=== PATIENT | male | born 1970 | race Caucasian/White ===

== ENCOUNTER 2020-08-21 15:44 | Emergency (ER) | payer BC ==
[2020-08-21] MEDS ORDERED: MORPHINE 4 MG/ML SYR ONE (16:38)
[2020-08-21 16:39] LABS: Urine Blood TRACE (NEG); Urine Glucose 2+ (NEG); Urine Protein 1+ (NEG); Urine Specific Gravity 1.025 (1.005-1.030)
[2020-08-21 16:39] LABS: Urine Bacteria <20 /HPF (NONE SEEN); Urine Mucus 1+ /HPF (NONE SEEN)
--- NOTE | 2020-08-21 16:46 | RAD REPORT ---
EXAM DESCRIPTION: CT - Stone Protocol - 08/21/2020 4:29 pm CLINICAL HISTORY: ABD PAIN COMPARISON: No comparisons TECHNIQUE: Axial 5 mm thick images were obtained without oral or IV contrast. The [id number] span s the entirety of the system including uppermost abdomen and lung bases. All CT scans are performed using dose optimization technique as appropriate and may include automated exposure control or mA/KV adjustment according to patient size. FINDINGS: No hydronephrosis is present and no obstructing ureteral calculi. No suspicious renal mass es. Isodense masses and pyelonephritis are not excluded on a stone protocol CT scan. No significant a drenal finding. Urinary bladder is mostly contracted which accentuates wall thickness. Prostate gland is enlarged. There is subtle congestion or edema in the fat adjacent to the prostate gland and bladd er base. No bladder calculi seen. No calcifications of the prostate gland. No seminal vesicle abnorma lity seen. Imaged portions of the liver, spleen and pancreas show no suspicious findings on non-contrast imaging . Gallbladder is contracted. No biliary tree dilatation. No suspicious bowel findings. Small hiatal hernia is present. Appendix is normal. No hernia, mass or bulky lymphadenopathy noted. No free air, free fluid or inflammatory stranding. No significant bony abnormality. IMPRESSION: Prostatitis and/or cystitis are suspected and need correlation with clinical findings an d lab findings. No hydronephrosis, obstructing calculus or acute renal/ ureteral finding. Isodense masses and pyelonephritis are not excluded on stone protocol technique.
[2020-08-21 16:57] LABS: Absolute Lymphocytes (CBC) 1.5 K/uL (0.7-4.9); Basophils % 0.9 % (0-1.3); Hematocrit 44.3 % (39.6-49.0); Lymphocytes % 15.9 % (15.3-44.8); MPV 7.7 fL (7.6-11.3); RBC Red Blood Cell Count 4.94 M/uL (4.33-5.43)
[2020-08-21 17:11] LABS: Albumin 3.9 g/dL (3.4-5.0); Bilirubin Direct 0.2 mg/dL (0-0.2); Bilirubin Total 0.5 mg/dL (0.2-1.0); Potassium 3.9 mmol/L (3.5-5.1); Protein, Total 8.2 g/dL (6.4-8.2)
--- NOTE | 2020-08-21 17:38 | RAD REPORT ---
EXAM DESCRIPTION: US - Scrotum Testicles - 08/21/2020 5:10 pm CLINICAL HISTORY: left testicle pain COMPARISON: No comparisons FINDINGS: Testicular tissue is homogeneous with no focal mass lesion. Doppler evaluation shows evette l blood flow within each testicle. No epididymis enlargement or hyperemia. Small left hydrocele is pr esent. Very minimal right hydrocele seen. No hernia or other extratesticular abnormality. IMPRESSION: Normal Doppler blood flow pattern. No suspicion for torsion. Small left-side and minimal right-side hydroceles.
[2020-08-21] MEDS ORDERED: KETOROLAC 30 MG/ML INJ ONE (17:48)
[2020-08-21] MEDS ORDERED: NA CHLORIDE 0.9% 1,000 ML ONE (17:48)
[2020-08-21] MEDS ORDERED: CEFTRIAXONE/SWI 1gm 1 GM/10 ML SYR ONE (17:48)
--- NOTE | 2020-08-21 18:00 | EDPHYS ---
Physician Documentation [facility] Name: Bradley White Age: 49 yrs Sex: Male : 1970 Arrival Date: 08/21/2020 Time: 15:47 Bed 23 Private MD: Rosa Sabillon K ED Physician Tony López HPI: 08/21 16:10 This 49 yrs old Male presents to ER via Ambulatory with complaints of cp Testicular Pain, Testicular Swelling. 16:10 The patient presents with tenderness, that is moderate, of the left testicle. Onset: cp The symptoms/episode began/occurred yesterday, and became worse today. Modifying factors: the symptoms are aggravated by movement. Associated signs and symptoms: Pertinent positives: abdominal pain, Pertinent negatives: constipation, diarrhea, dysuria, fever, vomiting. 16:10 Patient denies injury to area. cp Historical: - Allergies: 15:53 Codeine; iw - Home Meds: 15:53 None [Active]; iw - PMHx: 15:53 None; iw - PSHx: 15:53 None; iw - Immunization history:: Adult Immunizations not up to date. - Social history:: Smoking status: Patient denies any tobacco usage or history of. ROS: 16:15 Constitutional: Negative for body aches, chills, fever, poor PO intake. cp 16:15 Eyes: Negative for injury, pain, redness, and discharge. cp 16:15 ENT: Negative for ear pain, sore throat, difficulty swallowing, difficulty handling secretions. 16:15 Cardiovascular: Negative for chest pain, edema, palpitations. 16:15 Respiratory: Negative for cough, shortness of breath, wheezing. 16:15 Abdomen/GI: Positive for abdominal pain, of the suprapubic area. 16:15 Back: Negative for pain at rest, pain with movement, radiated pain. 16:15 : Positive for testicular pain Negative for urinary symptoms, flank pain, penile discharge. 16:15 Skin: Negative for cellulitis, rash. 16:15 Neuro: Negative for altered mental status, headache, weakness. 16:15 All other systems are negative. Exam: 16:25 Constitutional: The patient appears in no acute distress, alert, awake, cp non-diaphoretic, non-toxic, well developed, well nourished, obese, uncomfortable. 16:25 Head/Face: Normocephalic, atraumatic. cp 16:25 Eyes: Periorbital structures: appear normal, Conjunctiva: normal, no exudate, no injection, Sclera: no appreciated abnormality, Lids and lashes: appear normal, bilaterally. 16:25 ENT: External ear(s): are unremarkable, Nose: is normal, Mouth: Lips: moist, Oral mucosa: pink and intact, moist, Posterior pharynx: Airway: no evidence of obstruction, patent. 16:25 Chest/axilla: Inspection: normal, Palpation: is normal, no crepitus, no tenderness. 16:25 Cardiovascular: Rate: normal, Rhythm: regular, Edema: is not appreciated, JVD: is not appreciated. 16:25 Respiratory: the patient does not display signs of respiratory distress, Respirations: normal, no use of accessory muscles, no retractions, labored breathing, is not present, Breath sounds: are clear throughout, no decreased breath sounds. 16:25 Abdomen/GI: Inspection: abdomen appears normal, Bowel sounds: active, all quadrants, Palpation: soft, in all quadrants, mild abdominal tenderness, in the suprapubic area and left lower quadrant, rebound tenderness, is not appreciated, voluntary guarding, is not appreciated, involuntary guarding, is not appreciated, Hernia: not appreciated. 16:25 Back: pain, is absent, ROM is normal. 16:25 : Male external genitalia: swelling, is not appreciated, tenderness, of the left testicle is noted, that is moderate, Sexual behavior: the patient is sexually active, and reports a single partner. 16:25 Skin: cellulitis, is not appreciated, no rash present. Vital Signs: 15:51 BP 154 / 95; Pulse 108; Resp 16; Temp 98.3; Pulse Ox 100% on R/A; Weight 121.56 kg; iw Height 5 ft. 10 in. (177.80 cm); Pain 7/10; 17:00 BP 147 / 92; Pulse 87; Resp 16; Pulse Ox 99% on R/A; zb 18:00 BP 136 / 86; Pulse 82; Resp 18; Pulse Ox 97% on R/A; zb 18:55 BP 119 / 77; Pulse 80; Resp 16; Pulse Ox 99% on R/A; zb 15:51 Body Mass Index 38.45 (121.56 kg, 177.80 cm) iw MDM: 15:56 Patient medically screened. cp 16:30 Differential diagnosis: UTI, prostatitis, urethritis, epididymitis, STD, sepsis. cp 17:57 Data reviewed: vital signs, nurses notes, lab test result(s), radiologic studies, CT cp scan, ultrasound. 17:57 Counseling: I had a detailed discussion with the patient and/or guardian regarding: the cp historical points, exam findings, and any diagnostic results supporting the discharge/admit diagnosis, lab results, radiology results, the need for outpatient follow up, a urologist, to return to the emergency department if symptoms worsen or persist or if there are any questions or concerns that arise at home. Response to treatment: the patient's symptoms have markedly improved after treatment, VSS. Pain improved. Will discharge to home for continued monitoring. 08/21 16:09 Order name: Basic Metabolic Panel; Complete Time: 17:19 08/21 17:19 Interpretation: Normal except: GLUC 184; GFR 80. 08/21 16:09 Order name: CBC with Diff; Complete Time: 17:19 08/21 16:09 Order name: Hepatic Function; Complete Time: 17:19 08/21 16:09 Order name: Lipase; Complete Time: 17:19 08/21 16:09 Order name: Urine Microscopic Only; Complete Time: 17:19 08/21 17:20 Interpretation: Normal except: UWBC 10-20; URBC 5-10. 08/21 16:22 Order name: Urine Dipstick--Ancillary (enter results); Complete Time: 17:19 em1 08/21 17:20 Interpretation: Normal except: UBLD TRACE; UPROT 1+; UESTR TRACE. 08/21 16:09 Order name: US Scrotum Testicles; Complete Time: 17:40 08/21 17:40 Interpretation: Report reviewed. 08/21 16:10 Order name: CT Stone Protocol; Complete Time: 17:19 08/21 16:40 Order name: Urine Culture EDID 08/21 17:22 Order name: Psa Screen 08/21 16:09 Order name: IV Saline Lock; Complete Time: 16:25 08/21 16:09 Order name: Labs collected and sent; Complete Time: 16:25 08/21 16:09 Order name: Urine Dipstick-Ancillary (obtain specimen); Complete Time: 16:20 cp Administered Medications: 16:23 Drug: morphine 4 mg Route: IVP; Site: right forearm; zb 17:35 Follow up: Response: No adverse reaction; Pain is unchanged, physician notified; RASS: zb Alert and Calm (0) 17:40 Drug: TORadol - Ketorolac 15 mg Route: IVP; Site: right forearm; zb 18:16 Follow up: Response: No adverse reaction; No change in condition; Pain is unchanged, zb physician notified 17:43 Drug: NS 0.9% 1000 ml Route: IV; Rate: 1 bolus; Site: right forearm; zb 18:55 Follow up: Response: No adverse reaction; IV Status: Completed infusion; IV Intake: zb 1000ml 17:43 Drug: Rocephin 1 grams Route: IV; Rate: calculated rate; Site: right forearm; zb 18:16 Follow up: Response: No adverse reaction; IV Status: Completed infusion; IV Intake: 10mlzb 17:55 Drug: LevaQUIN 750 mg Route: PO; zb 18:16 Follow up: Response: No adverse reaction zb 17:55 Drug: Zithromax 1 grams Route: PO; zb 18:17 Follow up: Response: No adverse reaction zb Disposition: 08/22 06:50 Co-signature as Attending Physician, Tony López MD I agree with the assessment and kdr plan of care. Disposition: 08/21/20 17:59 Discharged to Home. Impression: Acute prostatitis, Cystitis. - Condition is Stable. - Discharge Instructions: Prostatitis, Urinary Tract Infection, Adult. - Prescriptions for Ibuprofen 800 mg Oral Tablet - take 1 tablet by ORAL route every 8 hours As needed take with food; 30 tablet. Levaquin 750 mg Oral Tablet - take 1 tablet by ORAL route once daily for 10 days; 10 tablet. Tramadol 50 mg Oral Tablet - take 1 tablet by ORAL route every 8 hours as needed; 12 tablet. - Medication Reconciliation Form, Thank You Letter, Antibiotic Education, Prescription Opioid Use form. - Work release form (08/21/20 18:57). zb - Follow up: Abdiel Alvarado MD; When: 1 week; Reason: Recheck today's complaints. - Problem is new. - Symptoms have improved. Signatures: Dispatcher [employer] EDMS Tony López MD MD kdr Williams, Irene, RN RN Naveed Duran PA PA cp Brown, Zipporah RN RN zb Corrections: (The following items were deleted from the chart) 08/21 18:03 17:59 08/21/2020 17:59 Discharged to Home. Impression: Acute prostatitis. Condition is cp Stable. Forms are Medication Reconciliation Form, Thank You Letter, Antibiotic Education, Prescription Opioid Use. Follow up: Abdiel Alvarado; When: 1 week; Reason: Recheck today's complaints. Problem is new. Symptoms have improved. cp 18:56 18:03 08/21/2020 17:59 Discharged to Home. Impression: Acute prostatitis; Cystitis. zb Condition is Stable. Discharge Instructions: Prostatitis, Urinary Tract Infection, Adult. Prescriptions for Ibuprofen 800 mg Oral Tablet - take 1 tablet by ORAL route every 8 hours As needed take with food; 30 tablet, Levaquin 750 mg Oral Tablet - take 1 tablet by ORAL route once daily for 10 days; 10 tablet, Tramadol 50 mg Oral Tablet - take 1 tablet by ORAL route every 8 hours as needed; 12 tablet. and Forms are Medication Reconciliation Form, Thank You Letter, Antibiotic Education, Prescription Opioid Use. Follow up: Abdiel Alvarado; When: 1 week; Reason: Recheck today's complaints. Problem is new. Symptoms have improved. cp
--- NOTE | 2020-08-21 18:00 | ER ---
Nurse's Notes [facility] Name: Bradley White Age: 49 yrs Sex: Male : 1970 Arrival Date: 08/21/2020 Time: 15:47 Bed 23 Private MD: Rosa Sabillon K Diagnosis: Acute prostatitis;Cystitis Presentation: 08/21 15:51 Chief complaint: Patient states: left testicular pain and swelling since yesterday, had iw LLQ pain 2 days ago, noticed his testicle didn't feel right, was ok this morning but as he was at work started hurting more. Coronavirus screen: At this time, the client does not indicate any symptoms associated with coronavirus-19. Ebola Screen: Patient negative for fever greater than or equal to 101.5 degrees Fahrenheit, and additional compatible Ebola Virus Disease symptoms Patient denies exposure to infectious person. Patient denies travel to an Ebola-affected area in the 21 days before illness onset. No symptoms or risks identified at this time. Initial Sepsis Screen: Does the patient meet any 2 criteria? No. Patient's initial sepsis screen is negative. Does the patient have a suspected source of infection? No. Patient's initial sepsis screen is negative. Risk Assessment: Do you want to hurt yourself or someone else? Patient reports no desire to harm self or others. Onset of symptoms was August 20, 2020. 15:51 Method Of Arrival: Ambulatory 15:51 Acuity: ALVAREZ 3 iw Historical: - Allergies: 15:53 Codeine; iw - Home Meds: 15:53 None [Active]; iw - PMHx: 15:53 None; iw - PSHx: 15:53 None; iw - Immunization history:: Adult Immunizations not up to date. - Social history:: Smoking status: Patient denies any tobacco usage or history of. Screenin:08 Abuse screen: Denies threats or abuse. Denies injuries from another. Nutritional zb screening: No deficits noted. Tuberculosis screening: No symptoms or risk factors identified. Fall Risk None identified. Assessment: 16:06 General: Appears in no apparent distress. uncomfortable, Behavior is calm, cooperative, zb appropriate for age. Pain: Complains of pain in left testicle Pain does not radiate. Pain at worst was 10 out of 10 on a pain scale. Quality of pain is described as aching, tender, Pain began 1 day ago. Aggravated by repositioning. Neuro: Level of Consciousness is awake, alert, obeys commands, Oriented to person, place, time, situation. Cardiovascular: Capillary refill < 3 seconds in bilateral Patient's skin is warm and dry. Respiratory: Airway is patent Respiratory effort is even, unlabored, Respiratory pattern is regular, symmetrical. GI: Abdomen is round non-distended. : Genitalia appear normal testis are swollen. EENT: No signs and/or symptoms were reported regarding the EENT system. Derm: Skin is intact, is healthy with good turgor, Skin is dry, Skin is normal. Musculoskeletal: Range of motion: intact in all extremities. 17:30 Reassessment: Patient appears in no apparent distress at this time. Patient and/or zb family updated on plan of care and expected duration. Pain level reassessed. Patient is alert, oriented x 3, equal unlabored respirations, skin warm/dry/pink. patient recently came back from CT and US. 18:14 Reassessment: D/C pending IV fluid completion. zb 18:54 Reassessment: IV fluid completed. D/c instructions given. gait steady and even. patient zb states already notified his ride. Vital Signs: 15:51 BP 154 / 95; Pulse 108; Resp 16; Temp 98.3; Pulse Ox 100% on R/A; Weight 121.56 kg; iw Height 5 ft. 10 in. (177.80 cm); Pain 7/10; 17:00 BP 147 / 92; Pulse 87; Resp 16; Pulse Ox 99% on R/A; zb 18:00 BP 136 / 86; Pulse 82; Resp 18; Pulse Ox 97% on R/A; zb 18:55 BP 119 / 77; Pulse 80; Resp 16; Pulse Ox 99% on R/A; zb 15:51 Body Mass Index 38.45 (121.56 kg, 177.80 cm) iw ED Course: 15:47 Patient arrived in ED. as 15:47 Rosa Sabillon MD is Private Physician. as 15:53 Triage completed. iw 15:55 Naveed Mccoy PA is [facility]. cp 15:55 Tony López MD is Attending Physician. cp 16:06 Brown, Yue, RN is Primary Nurse. zb 16:09 Arm band placed on. iw 16:24 Patient has correct armband on for positive identification. Placed in gown. Bed in low zb position. Call light in reach. Side rails up X 1. Pulse ox on. NIBP on. Door closed. Noise minimized. 16:24 Inserted saline lock: 20 gauge in right forearm, using aseptic technique. Blood zb collected. 16:28 CT Stone Protocol In Process Unspecified. EDMS 16:59 US Scrotum Testicles In Process Unspecified. EDMS 17:59 Abdiel Alvarado MD is Referral Physician. cp 18:53 IV discontinued, intact, bleeding controlled, No redness/swelling at site. Pressure zb dressing applied. 18:53 No provider procedures requiring assistance completed. zb Administered Medications: 16:23 Drug: morphine 4 mg Route: IVP; Site: right forearm; zb 17:35 Follow up: Response: No adverse reaction; Pain is unchanged, physician notified; RASS: zb Alert and Calm (0) 17:40 Drug: TORadol - Ketorolac 15 mg Route: IVP; Site: right forearm; zb 18:16 Follow up: Response: No adverse reaction; No change in condition; Pain is unchanged, zb physician notified 17:43 Drug: NS 0.9% 1000 ml Route: IV; Rate: 1 bolus; Site: right forearm; zb 18:55 Follow up: Response: No adverse reaction; IV Status: Completed infusion; IV Intake: zb 1000ml 17:43 Drug: Rocephin 1 grams Route: IV; Rate: calculated rate; Site: right forearm; zb 18:16 Follow up: Response: No adverse reaction; IV Status: Completed infusion; IV Intake: 10mlzb 17:55 Drug: LevaQUIN 750 mg Route: PO; zb 18:16 Follow up: Response: No adverse reaction zb 17:55 Drug: Zithromax 1 grams Route: PO; zb 18:17 Follow up: Response: No adverse reaction zb Intake: 18:16 IV: 10ml; Total: 10ml. zb 18:55 IV: 1000ml; Total: 1010ml. zb Outcome: 17:59 Discharge ordered by . cp 18:53 Discharged to home ambulatory. zb 18:53 Condition: stable 18:53 Discharge instructions given to patient, Instructed on discharge instructions, follow up and referral plans. medication usage, Demonstrated understanding of instructions, follow-up care, medications, Prescriptions given X 3. 18:56 Patient left the ED. zb Signatures: Dispatcher [employer] Carla Rodrigues Irene, RN RN Naveed Duran PA PA cp Brown, Zipporah, RN RN zalejandro Corrections: (The following items were deleted from the chart) 18:15 17:00 Reassessment: Patient appears in no apparent distress at this time. Patient zb and/or family updated on plan of care and expected duration. Pain level reassessed. Patient is alert, oriented x 3, equal unlabored respirations, skin warm/dry/pink. patient recently came back from CT and US zb
[2020-08-21] MEDS ORDERED: levoFLOXacin 750 MG TAB ONE (18:09)
[2020-08-21] MEDS ORDERED: AZITHROMYCIN 250 MG TAB ONE ×2 (18:09→18:10)
[2020-08-21] MEDS ORDERED: HYDROCODONE/APAP 7.5/325 MG TAB ONE (18:43)
[2020-08-21 19:01] VITALS: TEMP 98.3
[2020-08-21 19:05] VITALS: BP 119/77; O2SAT 99
== END 2020-08-21 18:56 | disposition home or self-care (01) ==
LOC: ER 15:44
DX: N41.0 Acute prostatitis (principal); N30.90 Cystitis, unspecified without hematuria; Z88.6 Allergy status to analgesic agent
CPT/HCPCS: 96365; 96361; 87088; 85025; 87086; 80048; 36415; 80076; 83690; 76377; 74176; 76870; 96375; 99284; G0103; J0696; J7030; 81003; 81015

== ENCOUNTER 2023-07-02 09:39 | Inpatient (IN) | payer BC ==
[2023-07-02] MEDS ORDERED: METOCLOPRAMIDE 10 MG/2mL INJ ONE (09:58)
[2023-07-02] MEDS ORDERED: MORPHINE 4 MG/ML SYR ONE (09:58)
[2023-07-02] MEDS ORDERED: FAMOTIDINE 20 MG/2 ML VIAL IV ONE (10:06)
[2023-07-02] MEDS ORDERED: NA CHLORIDE 0.9% 1,000 ML ONE ×2 (10:07→13:31)
[2023-07-02 10:13] LABS: Absolute Lymphocytes (CBC) 1.1 K/uL (0.7-4.9); Hematocrit 41.7 % (39.6-49.0); MCV 87.4 fL (80-100); MPV 7.2 fL (7.6-11.3); Platelets 252 thou/uL (152-406); RBC Red Blood Cell Count 4.78 M/uL (4.33-5.43)
--- NOTE | 2023-07-02 10:20 | RAD REPORT ---
EXAM DESCRIPTION: US - Abdomen Exam Limited - 07/02/2023 10:10 am CLINICAL HISTORY: Abdominal pain. COMPARISON: None. FINDINGS: Small to moderate amount of gallbladder sludge. A gallstone is not seen. Gallbladder wall upper limits normal thickness The biliary tree is normal caliber. IMPRESSION: Small to moderate amount of gallbladder sludge
[2023-07-02] MEDS ORDERED: HYDROMORPHONE HCL 1 MG/ML INJ ONE ×4 (10:23→22:55)
[2023-07-02 10:32] LABS: Bilirubin Direct 0.3 mg/dL (0-0.2); Bilirubin Indirect, Calculated 0.5 mg/dL (0.2-0.8); Bilirubin Total 0.8 mg/dL (0.2-1.0); Magnesium 2.1 mg/dL (1.6-2.4); Potassium 3.4 mEq/L (3.5-5.1); Protein, Total 7.4 g/dL (6.4-8.2); Troponin High Sensitivity 4.8 pg/mL (<58.9)
--- NOTE | 2023-07-02 11:30 | RAD REPORT ---
EXAM DESCRIPTION: Tiffanie Single View07/02/2023 10:47 am CLINICAL HISTORY: Abdominal pain COMPARISON: none FINDINGS: The lungs appear clear of acute infiltrate. The heart is normal size IMPRESSION: No acute abnormalities displayed
--- NOTE | 2023-07-02 11:30 | RAD REPORT ---
EXAM DESCRIPTION: CT - Angio Aorta For Dissection - 07/02/2023 11:14 am CLINICAL HISTORY: . Chest and abd pain COMPARISON: None TECHNIQUE: Computed tomography angiography of the chest, abdomen pelvis were obtained. 100 cc Isovue 370 was administered intravenously. Coronal and sagittal reconstruction were performed. MIP 3D reconstruction was performed All CT scans are performed using dose optimization technique as appropriate and may include automated exposure control or mA/KV adjustment according to patient size. FINDINGS: The opacification of the aorta is suboptimal. No gross aortic dissection seen An aortic aneurysm is not displayed. The celiac, SMA and KATHY are patent . A lung consolidation is not present. A pericardial effusion is not seen. A pleural effusion is not no tea. Mild gallbladder distention. Small amount of fluid abuts the gallbladder and second portion of the du odenum The liver,spleen, pancreas,adrenals and kidneys demonstrate no significant abnormality. There no evidence diverticulitis. Normal appendix Small inguinal hernias Spondylosis lumbar spine results in spinal stenosis IMPRESSION: Suboptimal opacification of the aorta. No gross aortic dissection noted Mild gallbladder distention. Small amount of fluid surrounds the gallbladder and second portion of th e duodenum indicative of inflammation. Gallbladder is considered the most likely source. Duodenum is also a consideration but probably less likely
--- NOTE | 2023-07-02 12:02 | ER ---
Nurse's Notes [facility] Name: Bradley White Age: 52 yrs Sex: Male : 1970 Arrival Date: 07/02/2023 Time: 09:39 Bed 19 Private MD: Diagnosis: Acute cholecystitis;Hypertensive heart disease without heart failure;Diabetes mellitus due to underlying condition with hyperglycemia Presentation: 07/02 09:44 Chief complaint: Patient states: STARTED HAVING CP 1 HR AGO AFTER VOMITING. DIARRHEA jj7 ALL DAY YESTERDAY. Coronavirus screen: At this time, the client does not indicate any symptoms associated with coronavirus-19. Ebola Screen: No symptoms or risks identified at this time. Initial Sepsis Screen: Does the patient meet any 2 criteria? No. Patient's initial sepsis screen is negative. Does the patient have a suspected source of infection? No. Patient's initial sepsis screen is negative. Risk Assessment: Do you want to hurt yourself or someone else? Patient reports no desire to harm self or others. Onset of symptoms was July 02, 2023. 09:44 Method Of Arrival: Wheelchair jj7 09:44 Acuity: ALVAREZ 3 jj7 Triage Assessment: 10:01 General: Appears in no apparent distress. uncomfortable, Behavior is cooperative, jj7 appropriate for age. Pain: Complains of pain in epigastric area Pain currently is 10 out of 10 on a pain scale. Cardiovascular: Capillary refill < 3 seconds Patient's skin is warm and dry. Historical: - Allergies: 10:01 Codeine; jj7 - PMHx: 10:01 Diabetes mellitus; Hypertensive disorder; jj7 - PSHx: 10:01 None; jj7 - Immunization history:: Adult Immunizations not up to date. - Social history:: Smoking status: Patient denies any tobacco usage or history of. Patient uses alcohol, occasionally. Patient/guardian denies using street drugs. Screenin:[facility] ED Fall Risk Assessment (Adult) History of falling in the last 3 months, cp4 including since admission No falls in past 3 months (0 pts) Confusion or Disorientation No (0 pts) Intoxicated or Sedated No (0 pts) Impaired Gait No (0 pts) Mobility Assist Device Used No (0 pt) Altered Elimination No (0 pt) Score/Fall Risk Level 0 - 2 = Low Risk Oriented to surroundings, Maintained a safe environment, Educated pt \T\ family on fall prevention, incl call for assistance when getting out of bed, Assessed \T\ reinforced patient's understanding of fall precautions, Hourly rounding (assess needs \T\ fall precautionary measures) done. Abuse screen: Denies threats or abuse. Nutritional screening: No deficits noted. Tuberculosis screening: No symptoms or risk factors identified. Assessment: 10:15 General: Appears distressed, Behavior is calm, cooperative, appropriate for age. Pain: cp4 Pain does not radiate. Pain currently is 10 out of 10 on a pain scale. Pain began suddenly. Vital Signs: 09:44 BP 137 / 91; Pulse 90; Resp 20; Pulse Ox 100% ; Weight 117.93 kg; Height 5 ft. 10 in. ; jj7 Pain 10/10; 11:02 BP 146 / 77; Pulse 77; Resp 18; Pulse Ox 100% ; cp4 12:00 BP 130 / 85; Pulse 74; Resp 18; Pulse Ox 100% ; cp4 13:00 BP 148 / 71; Pulse 75; Resp 18; Pulse Ox 100% ; cp4 09:44 Body Mass Index 37.31 (117.93 kg, 177.8 cm) jj7 09:44 Pain Scale: Adult jj7 ED Course: 09:40 Patient arrived in ED. ts1 09:45 Naveed Mccoy PA is PHCP. cp 09:45 Naveed Lamas MD is Attending Physician. cp 09:58 Gerardo Read, RN is Primary Nurse. rs5 10:01 Triage completed. jj7 10:01 Arm band placed on right wrist. Patient placed in an exam room, on a stretcher, on jj7 director acute. EKG completed in triage. Results shown to MD. 10:10 Primary Nurse role handed off by Gerardo Read, RN cp4 10:10 Radha Vincent is Primary Nurse. cp4 10:12 US Abdomen Limited: gallbladder In Process Unspecified. EDMS 10:15 Bed in low position. Call light in reach. Side rails up X2. Client placed on continuous cp4 cardiac and pulse oximetry monitoring. NIBP monitoring applied. 10:15 No provider procedures requiring assistance completed. Inserted saline lock: 20 gauge cp4 in left antecubital area, using aseptic technique. Blood collected. Patient maintains SpO2 saturation greater than 95% on room air. 10:49 XRAY Chest (1 view) In Process Unspecified. EDMS 11:15 CT Aorta for Dissection In Process Unspecified. EDMS 12:01 Elmer Reddy MD is Hospitalizing Provider. cp 12 08:50 Patient admitted, IV remains in place. rs5 Administered Medications: 07/02 09:57 CANCELLED (Physician Discretion): ondansetron 4 mg IVP once; over 2 minutes cp 10:27 CANCELLED (Physician Discretion): clonidine0.1 mg PO once cp 10:30 Drug: HYDROmorphone IVP 1 mg IVP once Route: IVP; Site: left antecubital; cp4 13:42 Follow up: Response: No adverse reaction cp4 10:31 Drug: Famotidine IVP 20 mg IVP once; dilute with 10 mL 0.9% NaCl; give over 2 minutes cp4 Route: IVP; Site: left antecubital; 13:41 Follow up: Response: No adverse reaction cp4 10:31 Drug: morphine IVP or IV 4 mg IVP once over 4 mins Route: IVP; Infused Over: 4 mins; cp4 Site: left antecubital; 10:31 Drug: NS 0.9% IV 1000 ml IV at 999 ml/hr Per protocol; 1000 mL bolus Route: IV; Rate: cp4 999 ml/hr; Site: left antecubital; 13:41 Follow up: IV Status: Completed infusion cp4 10:31 Drug: metoCLOPramide IVP 10 mg IVP once; over 1 to 2 minutes Route: IVP; Site: left cp4 antecubital; 13:42 Follow up: Response: No adverse reaction cp4 12:01 Drug: HYDROmorphone IVP 1 mg IVP once Route: IVP; Site: left antecubital; cp4 12:04 Drug: Potassium PO Effervescent Tablet 25 mEq PO once; dissolve in 4 ounces of water or cp4 juice Route: PO; 13:42 Follow up: Response: No adverse reaction cp4 12:59 Drug: NS 0.9% IV 1000 ml IV at 125 ml/hr continuous Route: IV; Rate: 125 ml/hr; Site: cp4 left antecubital; 13:42 Drug: Piperacillin-Tazobactam IVPB 3.375 grams IVPB once over 60 mins; (mix in NS 100 cp4 mL) Route: IVPB; Infused Over: 60 mins; Site: left antecubital; Medication: 10:15 VIS not applicable for this client. cp4 Outcome: 12:02 Decision to Hospitalize by Provider. cp 07/03 08:50 Admitted to Med/surg accompanied by tech, with chart, rs5 Condition: stable Discharge instructions given to patient, family, Instructed on the need for admit, Demonstrated understanding of instructions, 08:56 Patient left the ED. ko1 Signatures: Dispatcher [employer] EDMS Naveed Mccoy PA PA cp Oliver, Kathy RN RN ko1 Lionel Miller RN RN jj7 Gerardo Read RN RN rs5 Kesha Ahumada PAS PAS ts1 Radha Vincent cp4
--- NOTE | 2023-07-02 12:02 | EDPHYS ---
Physician Documentation [facility] Name: Bradley White Age: 52 yrs Sex: Male : 1970 Arrival Date: 07/02/2023 Time: 09:39 Bed 19 Private MD: ED Physician Naveed Lamas HPI: 07/02 09:57 This 52 yrs old Male presents to ER via Unassigned with complaints of Chest Pain, cp Shortness Of Breath. 09:57 The patient or guardian reports chest pain that is located primarily in the epigastric cp area, anterior chest wall. 09:57 Onset: suddenly, today. The pain radiates to Associated signs and symptoms: Pertinent cp positives: nausea, shortness of breath, vomiting, Pertinent negatives: lower extremity pain, lower extremity swelling, diarrhea. The chest pain is described as constant. Duration: The patient or guardian reports a single episode, that is still ongoing, and worsening. Historical: - Allergies: 10:01 Codeine; jj7 - PMHx: 10:01 Diabetes mellitus; Hypertensive disorder; jj7 - PSHx: 10:01 None; jj7 - Immunization history:: Adult Immunizations not up to date. - Social history:: Smoking status: Patient denies any tobacco usage or history of. Patient uses alcohol, occasionally. Patient/guardian denies using street drugs. ROS: 10:00 Constitutional: Negative for body aches, chills, fever, cp 10:00 Eyes: Negative for injury, pain, redness, and discharge, cp 10:00 ENT: Negative for drainage from ear(s), ear pain, sore throat, difficulty swallowing, difficulty handling secretions, 10:00 Cardiovascular: Positive for chest pain, Negative for edema, palpitations, 10:00 Respiratory: Positive for shortness of breath, Negative for cough, wheezing, 10:00 Abdomen/GI: Positive for abdominal pain, nausea, vomiting, diarrhea, of the epigastric area, right upper quadrant and left upper quadrant, Negative for constipation, hematemesis, 10:00 Back: Positive for radiated pain, 10:00 Neuro: Negative for altered mental status, 10:00 All other systems are negative, Exam: 10:02 ECG was reviewed by the Attending Physician. cp 10:05 Constitutional: The patient appears alert, awake, non-diaphoretic, non-toxic, well cp developed, well nourished, in obvious distress, mildly distressed, in obvious pain, uncomfortable, 10:05 Head/Face: Normocephalic, atraumatic. cp 10:05 Eyes: Periorbital structures: appear normal, Conjunctiva: normal, no exudate, no injection, Sclera: no appreciated abnormality, Lids and lashes: appear normal, bilaterally, 10:05 ENT: External ear(s): are unremarkable, Nose: is normal, Mouth: Lips: moist, Oral mucosa: pink and intact, moist, Posterior pharynx: is normal, airway is patent, no erythema, no exudate, 10:05 Neck: ROM/movement: is normal, is supple, without pain, no range of motions limitations, no nuchal rigidity, 10:05 Chest/axilla: Inspection: normal, Palpation: is normal, no crepitus, no tenderness, 10:05 Cardiovascular: Rate: normal, Rhythm: regular, Edema: is not appreciated, JVD: is not appreciated, 10:05 Respiratory: the patient does not display signs of respiratory distress, Respirations: normal, no use of accessory muscles, labored breathing, is not present, Breath sounds: are clear throughout, no decreased breath sounds, no stridor, no wheezing, 10:05 Abdomen/GI: Inspection: abdomen appears normal, Bowel sounds: active, all quadrants, Palpation: soft, in all quadrants, severe abdominal tenderness, in the epigastric area and right upper quadrant, voluntary guarding, is elicited in the epigastric area and right upper quadrant, 10:05 Back: CVA tenderness, is absent, 10:05 Neuro: Orientation: to person, place \T\ time. Mentation: is normal, Motor: moves all fours, strength is normal, Sensation: is normal, Vital Signs: 09:44 BP 137 / 91; Pulse 90; Resp 20; Pulse Ox 100% ; Weight 117.93 kg; Height 5 ft. 10 in. ; jj7 Pain 10; 11:02 BP 146 / 77; Pulse 77; Resp 18; Pulse Ox 100% ; cp4 12:00 BP 130 / 85; Pulse 74; Resp 18; Pulse Ox 100% ; cp4 13:00 BP 148 / 71; Pulse 75; Resp 18; Pulse Ox 100% ; cp4 09:44 Body Mass Index 37.31 (117.93 kg, 177.8 cm) 7 09:44 Pain Scale: Adult jj7 MDM: 09:58 Patient medically screened. cp 11:00 Differential diagnosis: abnormal EKG, acute myocardial infarction, acute pericarditis, cp chest wall pain, cholecystitis, Cholelithiasis pancreatitis, pericarditis, pleurisy, pneumonia, pneumothorax, pulmonary embolus. 11:59 Data reviewed: vital signs, nurses notes, lab test result(s), EKG, radiologic studies, cp CT scan, plain films, ultrasound. Management of patient was discussed with the following: Chimney Repairer: DR Roberts who requests patient be admitted to hospitalist and will perform cholecystectomy tomorrow morning. House Superviser Armani notified. Care significantly affected by the following chronic conditions: Diabetes, Hypertension. 12:10 Counseling: I had a detailed discussion with the patient and/or guardian regarding the cp historical points, exam findings, and any diagnostic results supporting the discharge/admit diagnosis, lab results, radiology results, the need for further work-up and treatment in the hospital. 12:10 Response to treatment: the patient's symptoms have markedly improved after treatment, cp and as a result, I will admit patient. 07/02 09:56 Order name: Basic Metabolic Panel; Complete Time: 10:42 07/02 10:42 Interpretation: Normal except: K 3.4; GLUC 230; GFR 86. 07/02 09:56 Order name: CBC with Diff; Complete Time: 10:42 07/02 10:42 Interpretation: Normal except: RDW 16.4; MPV 7.2; GUZMAN% 80.3; LYM% 10.0; NEUT A 8.5. 07/02 09:56 Order name: LFT's; Complete Time: 10:42 07/02 10:42 Interpretation: Normal except: BILID 0.3. 07/02 09:56 Order name: Magnesium; Complete Time: 10:42 cp 07/02 09:56 Order name: NT PRO-BNP; Complete Time: 10:42 cp 07/02 09:56 Order name: PT-INR; Complete Time: 10:42 07/02 09:56 Order name: Troponin HS; Complete Time: 10:42 07/02 10:43 Interpretation: Reviewed. 07/02 09:56 Order name: Lipase; Complete Time: 10:42 cp 07/02 10:43 Interpretation: Reviewed. cp 07/02 10:27 Order name: UDS cp 07/02 12:42 Order name: Lactate w/ 2H reflex if indic. cp 07/02 12:42 Order name: Blood Culture Adult (2) cp 07/02 13:14 Order name: Basic Metabolic Panel EDMS 07/02 13:14 Order name: Basic Metabolic Panel EDMS 07/02 13:14 Order name: Basic Metabolic Panel EDMS 07/02 13:14 Order name: Basic Metabolic Panel EDMS 07/02 13:14 Order name: Basic Metabolic Panel EDMS 07/02 13:14 Order name: Basic Metabolic Panel EDMS 07/02 13:14 Order name: Basic Metabolic Panel EDMS 07/02 13:14 Order name: Basic Metabolic Panel EDMS 07/02 13:14 Order name: CBC with Automated Diff EDMS 07/02 13:14 Order name: CBC with Automated Diff EDMS 07/02 13:14 Order name: CBC with Automated Diff EDMS 07/02 13:14 Order name: CBC with Automated Diff EDMS 07/02 13:14 Order name: CBC with Automated Diff EDMS 07/02 13:14 Order name: CBC with Automated Diff EDMS 07/02 13:14 Order name: CBC with Automated Diff EDMS 07/02 13:14 Order name: CBC with Automated Diff EDMS 07/02 13:14 Order name: Magnesium EDMS 07/02 13:14 Order name: Magnesium EDMS 07/02 13:14 Order name: Magnesium EDMS 07/02 13:14 Order name: Magnesium EDMS 07/02 13:14 Order name: Magnesium EDMS 07/02 13:14 Order name: Magnesium EDMS 07/02 13:14 Order name: Magnesium EDMS 07/02 13:14 Order name: Magnesium EDMS 07/02 13:14 Order name: Phosphorus EDMS 07/02 13:14 Order name: Phosphorus EDMS 07/02 13:14 Order name: Phosphorus EDMS 07/02 13:14 Order name: Phosphorus EDMS 07/02 13:14 Order name: Phosphorus EDMS 07/02 13:14 Order name: Phosphorus EDMS 07/02 13:14 Order name: Phosphorus EDMS 07/02 13:14 Order name: Phosphorus EDMS 07/02 13:14 Order name: Troponin High Sensitivity EDMS 07/02 13:14 Order name: Troponin High Sensitivity EDNJ 07/02 13:14 Order name: Troponin High Sensitivity EDNJ 07/02 17:52 Order name: Lactate Sepsis 2 HR Follow-up EDNJ 07/03 05:19 Order name: Manual Differential EDNJ 07/02 09:56 Order name: XRAY Chest (1 view); Complete Time: 11:36 cp 07/02 11:36 Interpretation: Report review. cp 07/02 09:56 Order name: US Abdomen Limited: gallbladder; Complete Time: 10:42 cp 07/02 10:45 Order name: CT Aorta for Dissection; Complete Time: 11:36 cp 07/02 09:56 Order name: EKG; Complete Time: 09:57 cp 07/02 13:14 Order name: CONS Physician Consult EDNJ 07/02 09:56 Order name: Cardiac monitoring; Complete Time: 09:56 cp 07/02 09:56 Order name: EKG - Nurse/Tech; Complete Time: 10:32 cp 07/02 09:56 Order name: IV Saline Lock; Complete Time: 10:32 cp 07/02 09:56 Order name: Labs collected and sent; Complete Time: 10:32 cp 07/02 09:56 Order name: O2 Per Protocol; Complete Time: 09:56 cp 07/02 09:56 Order name: O2 Sat Monitoring; Complete Time: 09:56 cp 07/02 09:56 Order name: NPO; Complete Time: 10:32 cp EC:02 Rate is 85 beats/min. Rhythm is regular. DE interval is normal. QRS interval is normal. cp QT interval is prolonged at 492 msec. Interpreted by me. Reviewed by me. Administered Medications: 09:57 CANCELLED (Physician Discretion): ondansetron 4 mg IVP once; over 2 minutes cp 10:27 CANCELLED (Physician Discretion): clonidine0.1 mg PO once cp 10:30 Drug: HYDROmorphone IVP 1 mg IVP once Route: IVP; Site: left antecubital; cp4 13:42 Follow up: Response: No adverse reaction cp4 10:31 Drug: Famotidine IVP 20 mg IVP once; dilute with 10 mL 0.9% NaCl; give over 2 minutes cp4 Route: IVP; Site: left antecubital; 13:41 Follow up: Response: No adverse reaction cp4 10:31 Drug: morphine IVP or IV 4 mg IVP once over 4 mins Route: IVP; Infused Over: 4 mins; cp4 Site: left antecubital; 10:31 Drug: NS 0.9% IV 1000 ml IV at 999 ml/hr Per protocol; 1000 mL bolus Route: IV; Rate: cp4 999 ml/hr; Site: left antecubital; 13:41 Follow up: IV Status: Completed infusion cp4 10:31 Drug: metoCLOPramide IVP 10 mg IVP once; over 1 to 2 minutes Route: IVP; Site: left cp4 antecubital; 13:42 Follow up: Response: No adverse reaction cp4 12:01 Drug: HYDROmorphone IVP 1 mg IVP once Route: IVP; Site: left antecubital; cp4 12:04 Drug: Potassium PO Effervescent Tablet 25 mEq PO once; dissolve in 4 ounces of water or cp4 juice Route: PO; 13:42 Follow up: Response: No adverse reaction cp4 12:59 Drug: NS 0.9% IV 1000 ml IV at 125 ml/hr continuous Route: IV; Rate: 125 ml/hr; Site: cp4 left antecubital; 13:42 Drug: Piperacillin-Tazobactam IVPB 3.375 grams IVPB once over 60 mins; (mix in NS 100 cp4 mL) Route: IVPB; Infused Over: 60 mins; Site: left antecubital; Disposition Summary: 07/02/23 12:02 Hospitalization Ordered Notes: Hospitalization Status: Inpatient Admission cp Provider: Elmer Reddy cp Condition: Stable cp Problem: new cp Symptoms: have improved cp Bed/Room Type: Standard cp Location: Telemetry/MedSurg (Inpatient)(07/03/23 07:22) sp Room Assignment: [facility](07/03/23 07:22) sp Diagnosis - Acute cholecystitis cp - Hypertensive heart disease without heart failure cp - Diabetes mellitus due to underlying condition with hyperglycemia cp Forms: - Medication Reconciliation Form cp - SBAR form cp - Leadership Thank You Letter cp Signatures: Dispatcher [employer] EDCristal Valdovinos Corey, PA PA cp Garcia, Cindy, RN RN Armani Michelle RN RN Lionel Jason RN RN jj7 Radha Vincent cp4 Corrections: (The following items were deleted from the chart) 09:57 09:56 Ondansetron IVP 4 mg IVP once; over 2 minutes ordered. cp cp 10:27 10:27 cloNIDine PO 0.1 mg PO once ordered. cp cp 14:07 12:02 Telemetry/MedSurg (Inpatient) cp sp 14:07 12:02 cp sp 18:00 14:07 [facility] ER HOLD sp ja1 18:00 14:07 ERHOLD- sp ja1 19:20 18:00 Telemetry/MedSurg (Inpatient) ja1 cg 19:20 18:00 203 ja1 cg 19:34 19:20 Telemetry/MedSurg (Inpatient) cg cg 19:34 19:20 cg cg 19:34 19:34 cg cg 07/03 07:22 07/02 19:34 [facility] ER HOLD cg sp 07/03 07:22 07/02 19:34 ERHOLD- cg sp 07/03 21:19 07/02 11:41 Constitutional: Positive for cp cp
[2023-07-02] MEDS ORDERED: POTASSIUM 25 MEQ EFFERV TAB ONE (12:05)
[2023-07-02 12:30] LABS: Barbiturates NEGATIVE (NEGATIVE); Benzodiazepines NEGATIVE (NEGATIVE); Cocaine NEGATIVE (NEGATIVE); METHAMPHETAM NEGATIVE (NEGATIVE); Methadone NEGATIVE (NEGATIVE); Opiates NEGATIVE (NEGATIVE); Phencyclidine NEGATIVE (NEGATIVE); THC Cannibis NEGATIVE (NEGATIVE)
--- NOTE | 2023-07-02 12:46 | P.HP ---
Certification for Inpatient Patient admitted to: Inpatient With expected LOS: <2 Midnights Patient will require the following post-hospital care: None Practitioner: I am a practitioner with admitting privileges, knowledge of patient current condition, hospital course, and medical plan of care. Services: Services provided to patient in accordance with Admission requirements found in Title 42 Section 412.3 of the Code of Federal Regulations Patient History Date of Service: 07/02/23 Reason for admission: Acute cholecystitis History of Present Illness: Bradley White is a 52 year old male with Pmhx borderline diabetes mellitus and hypertension who presents to the ED c/o epigastric pain. Family is at bedside and describes the patient has had diarrhea since yesterday and woke up throughout the night. This morning still with diarrhea and now with epigastric pain, further progressed to nausea and then vomiting this afternoon. After vomiting severe pain occurred to epigastric area, chest pain, and back pain as well. He states he has never had episodes like this in the past. No fever, chills, or shortness of breath associated. Initial vitals BP 137 / 91; Pulse 90; Resp 20; Pulse Ox 100%. Labratory evaluation WBC 10, H/H 14/41, Platelets 252, Lipase 27, Lactic pending, Na 137, Potassium 3.4, BUN/creatinine 17/1.03, GFR 86, serum glucose 230. CT Angio "Mild gallbladder distention. Small amount of fluid surrounds the gallbladder and second portion of the duodenum indicative of inflammation. Gallbladder is considered the most likely source. Duodenum is also a consideration but probably less likely." US abdomen "Small to moderate amount of gallbladder sludge. A gallstone is not seen. Gallbladder wall upper limits normal thickness. The biliary tree is normal caliber. Small to moderate amount of gallbladder sludge" Chest Xray "The lungs appear clear of acute infiltrate. The heart is normal size" Bradley will be admitted to hospitalist service for further treatment of acute cholecystitis, Dr. Roberts has been consulted and plans for surgery in the morning. Allergies codeine Adverse Reaction (Verified 07/02/23 13:32) Review of Systems General: Weakness, Malaise Eyes: Unremarkable ENT: Unremarkable Respiratory: Unremarkable Cardiovascular: Chest Pain Gastrointestinal: Nausea, Vomiting, Abdominal Pain (epigastric pain), Diarrhea Genitourinary: Unremarkable Musculoskeletal: Back Pain Integumentary: Unremarkable Neurological: Unremarkable Lymphatics: Unremarkable Physical Examination - Physical Exam General: Alert, Oriented x3, Moderate distress HEENT: Atraumatic, Normocephalic, PERRLA Neck: Supple, 2+ carotid pulse no bruit, JVD not distended Respiratory: Clear to auscultation bilaterally, Normal air movement Cardiovascular: No edema, Normal pulses, Regular rate/rhythm, Normal S1 S2 Capillary refill: <2 Seconds Gastrointestinal: Normal bowel sounds, Soft and benign, Tenderness (epigastric tenderness) Musculoskeletal: No clubbing, No swelling, No contractures, No erythema Integumentary: No rashes, No breakdown, No significant lesion Neurological: Normal speech, Normal strength at 5/5 x4 extr, Normal tone - Studies Laboratory Data (last 24 hrs) 07/02/23 07/02/23 07/02/23 10:00 10:00 10:00 WBC 10.60 Hgb 14.7 Hct 41.7 Plt Count 252 PT 11.0 INR 1.00 Sodium 137 Potassium 3.4 L BUN 17 Creatinine 1.03 Glucose 230 H Magnesium 2.1 Total Bilirubin 0.8 AST 26 ALT 40 Alkaline Phosphatase 57 Lipase 27 Assessment and Plan - Plan Assessment and Plan Acute Cholecystitis -CT Angio "Mild gallbladder distention. Small amount of fluid surrounds the gallbladder and second portion of the duodenum indicative of inflammation. Gallbladder is considered the most likely source. Duodenum is also a consider ation but probably less likely." -US abdomen "Small to moderate amount of gallbladder sludge. A gallstone is not seen. Gallbladder wall upper limits normal thickness. The biliary tree is normal caliber. Small to moderate amount of gallbladder sludge" -WBC 10, Lipase 27, Lactic pending -Consulted Dr. Roberts, plan for surgery 07/03 in the morning -Zosyn daily -IVF -pain control -Clear liquid today, NPO at midnight Prolonged QT QT/QTc 414/492 Hold medications that prolong QT Hypokalemia K 3.4 Replaced in ED monitor in AM labs Diabetes Mellitus Accucheck with SSI HTN restart home medications DVT ppx SCD for now Full code LOS 2-3 days Discharge Plan: Home Plan to discharge in: 48 Hours - Advance Directives Does patient have a Living Will: No Does patient have a Durable POA for Healthcare: No Time Spent Managing Pts Care (In Minutes): 55
[2023-07-02] MEDS ORDERED: PROMETHAZINE INJ 25 MG/ML AMP ONE (12:47)
[2023-07-02] MEDS ORDERED: NA CHLORIDE 0.9% 100 ML ONE ×2 (12:48→13:30)
[2023-07-02] MEDS ORDERED: PIPERACIL/TAZO 3.375 GM VIAL IV ONE (13:31)
[2023-07-02] MEDS: NA CHLORIDE 0.9% 1,000 ML IV SCH (14:00)
[2023-07-02] MEDS: HYDROMORPHONE HCL 1 MG/ML INJ IV PRN ×2 (17:11→23:30)
[2023-07-02 17:24] VITALS: BMI 37.1
[2023-07-03 02:20] LABS: Absolute Lymphocytes (CBC) 0.6 K/uL (0.7-4.9); Hematocrit 42.5 % (39.6-49.0); Lymphocytes % 4.2 % (15.3-44.8); MCV 88.3 fL (80-100); MPV 7.1 fL (7.6-11.3); Platelets 215 thou/uL (152-406); RBC Red Blood Cell Count 4.82 M/uL (4.33-5.43)
[2023-07-03 03:01] LABS: Phosphorus 3.3 mg/dL (2.5-4.9); Potassium 3.5 mEq/L (3.5-5.1)
[2023-07-03] MEDS ORDERED: HYDROMORPHONE HCL 1 MG/ML INJ ONE ×3 (04:49→12:48)
[2023-07-03] MEDS: HYDROMORPHONE HCL 1 MG/ML INJ IV PRN ×4 (04:58→20:57)
[2023-07-03 05:19] LABS: Blood Morphology Comment NOT SEEN (NOT SEEN); Platelet Estimate ADEQ
[2023-07-03] MEDS ORDERED: NA CHLORIDE 0.9% 1,000 ML ONE ×2 (06:57→11:08)
[2023-07-03] MEDS ORDERED: KCL 20 MEQ/100 mL IVPB 100 ML IV ONE (06:58)
[2023-07-03] MEDS ORDERED: KCL 20 MEQ/100 mL IVPB 20 MEQ/100 ML BAG IV SCH (07:00)
[2023-07-03] MEDS ORDERED: BUPIVACAINE 0.5% PF 10 ML VIAL ONE (07:44)
[2023-07-03] MEDS ORDERED: SUCCINYLCHOLINE 20 MG/ML (10 ML) IV ONE (08:19)
[2023-07-03] MEDS: PIPER TAZO 3.375 GM in NA CHLORIDE 0.9% 100 ML IV SCH ×2 (09:00→15:33)
[2023-07-03 09:04] LABS: Albumin 3.5 g/dL (3.4-5.0); Bilirubin Direct 0.7 mg/dL (0-0.2); Bilirubin Total 1.7 mg/dL (0.2-1.0); Protein, Total 7.2 g/dL (6.4-8.2)
[2023-07-03] MEDS ORDERED: INFLUENZA VACCINE (for 6+ mo) 0.5 ML DOSE IMVAC ONE (09:30)
[2023-07-03] MEDS ORDERED: GLYCOPYRROLATE 0.2 MG/ML SYR ONE (09:42)
[2023-07-03] MEDS ORDERED: propofoL 200 MG/20 ML VIAL IV ONE (09:42)
[2023-07-03] MEDS ORDERED: MIDAZOLAM HCL 2 MG/2 ML INJ ONE (09:42)
[2023-07-03] MEDS ORDERED: NEOSTIGMINE 1 MG/ML -10 ML VIAL ONE (09:42)
[2023-07-03] MEDS ORDERED: FENTANYL CITR 250 MCG/5 ML ONE (09:42)
[2023-07-03] MEDS ORDERED: ROCURONIUM 50 MG/5 ML VIAL IV ONE (09:42)
[2023-07-03] MEDS ORDERED: LIDOCAINE 2% MPF 5 ML VIAL ONE (09:42)
[2023-07-03] MEDS ORDERED: ONDANSETRON 4 MG/2 ML VIAL ONE (09:42)
[2023-07-03] MEDS: NA CHLORIDE 0.9% 1,000 ML IV SCH ×4 (10:00→20:05)
--- NOTE | 2023-07-03 10:06 | P.CNS ---
Date of Consult: 07/03/23 Reason for consult: Abdominal pain History of present illness: 52-year-old gentleman comes in to the emergency room with 2-day history of diarrhea and epigastric abdominal pain radiating to the right upper quadrant. Pain is associated with minimal nausea but bloating, belching and heartburn. Patient denies any vomiting. Patient never had pain like this before. Pain did start after heavy meal. Patient denies any sore throat, runny nose, cough, headaches, dizziness and chest pain. Patient did have subjective fever at home. Patient denies diarrhea, constipation or blood per rectum. Patient denies dysuria or hematuria. Review of systems: Otherwise negative Past medical history: Hypertension, type 2 diabetes Past surgical history: Negative Allergies: Codeinecauses nausea Social history: Patient denies smoking tobacco, uses alcohol occasionally Family history: Noncontributory Vital signs: Stable, afebrile Physical exam: Awake, alert and oriented x 3 Head and neck exam: No evidence of icterus, no JVD, throat clear, neck supple and no neck masses Chest: Clear Heart: S1-S2 Abdomen: Soft, nondistended, hypoactive bowel sounds, right upper quadrant tenderness with rebound and positive Glasgow's sign Extremity: Neurovascular intact, nontender Neuro: Nonfocal Diagnostic data: White count was normal on admission however is 15.4 today with a left shift. LFTs were normal yesterday but today the AST and ALT are elevated, but the alk phos is normal and total bili is slightly elevated as well as the direct bili. Ultrasound shows sludge with normal common bile duct and borderline wall thickening. CAT scan of the abdomen shows sludge with some fluid around the gallbladder and duodenum consistent with acute cholecystitis. CAT scan for aortic dissection was negative Assessment: Acute cholecystitis with a patient with sludge. I believe the elevation of AST and ALT are secondary to acute cholecystitis rather than an obstruction of the common bile duct. Patient does not have any evidence of gallstone on studies done yesterday. Plan/recommendation: Admit, n.p.o., IV fluids, IV antibiotics and to the OR for laparoscopic cholecystectomy, possible open. Patient understands risk, benefits and alternatives and agrees to procedure. CC:
[2023-07-03] MEDS ORDERED: EPHEDRINE SULF 50 MG/ML VIAL ONE (10:55)
--- NOTE | 2023-07-03 11:32 | P.PN ---
Date of Service: 07/03/23 Subjective: Bradley is awake, alert, and oriented x 3. He is able to lay on his back since the pain has been relieved. Plan to the OR with Dr. Roberts, hemodynamically stable, on RA with oxygen saturation 96%. Will re-evalulate him after surgery. ROS: 10 point ROS as noted above, otherwise negative Physical Exam General: Alert, Oriented x3, Moderate distress HEENT: Atraumatic, Normocephalic, PERRLA Neck: Supple, 2+ carotid pulse no bruit, JVD not distended Respiratory: Clear to auscultation bilaterally, Normal air movement Cardiovascular: No edema, Normal pulses, Regular rate/rhythm, Normal S1 S2 Capillary refill: <2 Seconds Gastrointestinal: Normal bowel sounds, Soft and benign, Tenderness (epigastric tenderness) Musculoskeletal: No clubbing, No swelling, No contractures, No erythema Integumentary: No rashes, No breakdown, No significant lesion Neurological: Normal speech, Normal strength at 5/5 x4 extr, Normal tone Vitals reviewed Diagnosis Acute Cholecystitis Prolonged QT Hypokalemia Diabetes Mellitus-NIDDM Assessment and plan Acute Cholecystitis -CT Angio "Mild gallbladder distention. Small amount of fluid surrounds the gallbladder and second portion of the duodenum indicative of inflammation. Gallbladder is considered the most likely source. Duodenum is also a consideration but probably less likely." -US abdomen "Small to moderate amount of gallbladder sludge. A gallstone is not seen. Gallbladder wall upper limits normal thickness. The biliary tree is normal caliber. Small to moderate amount of gallbladder sludge" -WBC 10, Lipase 27, Lactic pending -Consulted Dr. Roberts, plan for surgery 07/03 in the morning -Zosyn daily -IVF -pain control -NPO prior to surgery, will advance when surgery requests Prolonged QT QT/QTc 414/492 Hold medications that prolong QT Hypokalemia K 3.4 Replaced in ED monitor in AM labs Diabetes Mellitus Accucheck with SSI HTN restart home medications DVT ppx SCD for now Full code LOS 2-3 days Discharge Plan: Home Plan to discharge in: 48 Hours Time Spent Managing Pts Care (In Minutes): 35
[2023-07-03] MEDS ORDERED: dexAMETHasone 10 MG/ML VIAL ONE (11:51)
[2023-07-03] MEDS ORDERED: ONDANSETRON 4 MG/2 ML VIAL IV PRN (12:02)
--- NOTE | 2023-07-03 12:07 | P.OP ---
Date of Service: 07/03/23 Preop diagnosis: Acute cholecystitis with sludge Postop diagnosis: Same Procedure performed: Laparoscopic cholecystectomy Surgeon: Omar Roberts MD Corn Cooker: Elda Tyler Estimated blood loss: Minimal Specimen: Gallbladder Findings: As above Anesthesia: General Complications: None Drains: None Fluids and blood products: Nonapplicable Disposition: Recovery room Operative note: Patient brought to the OR and placed in the supine position. General anesthesia begun. Patient prepped and draped in the usual sterile fashion. Marcaine 0.5% infiltrated locally. 15 blade used to make a 1 cm incision above the umbilicus. Subcutaneous tissue divided and fascia identified and divided. Bleeding controlled with cautery. #1 Vicryl stay suture placed into the fascia. Peritoneal cavity entered with sharp and blunt dissection. 12 mm trocar placed into the peritoneal cavity under direct vision. Pneumoperitoneum established. Three 5 mm trocars placed under direct vision. 1 trocar placed in the epigastric region just to the right of midline. 2 trocars placed in the right subcostal region. Laparoscopy revealed a distended thick- walled gallbladder with pericholecystic fluid. The gallbladder was aspirated of bile. Fundus of the gallbladder was retracted superiorly. Infundibulum was identified and retracted inferolaterally. Cystic duct and cystic artery were identified with blunt dissection. Clips placed and both structures divided. Cautery used to remove the gallbladder from the liver bed. Bleeding on the liver controlled cautery. Gallbladder retrieved through the umbilicus via Endo Catch bag. Please note that the fascial defect had to be extended to get the gallbladder out. Pneumoperitoneum was reestablished. Right upper quadrant was irrigated. There was no evidence of bleeding or bile leakage appreciated. All trocars removed under direct vision. #1 Vicryl used to close the fascial defect at the umbilicus. Wounds irrigated and bleeding controlled cautery. 3-0 chromic used to approximate subcutaneous tissue. [place] used to close skin. Sterile dressing applied. Patient awakened and taken to recovery room in good general condition. CC:
[2023-07-03 13:49] VITALS: O2SAT 95
[2023-07-03] MEDS: HYDROCODONE/APAP 7.5/325 MG TAB PO PRN (13:59)
[2023-07-03] MEDS ORDERED: PIPER TAZO 3.375 GM in NA CHLORIDE 0.9% 100 ML IV SCH (22:00)
[2023-07-04] MEDS: PIPER TAZO 3.375 GM in NA CHLORIDE 0.9% 100 ML IV SCH ×2 (01:08→08:00)
[2023-07-04] MEDS: HYDROMORPHONE HCL 1 MG/ML INJ IV PRN ×2 (01:08→06:58)
[2023-07-04] MEDS: HYDROCODONE/APAP 7.5/325 MG TAB PO PRN (03:27)
[2023-07-04] MEDS: NA CHLORIDE 0.9% 1,000 ML IV SCH (03:27)
[2023-07-04 07:00] LABS: Absolute Lymphocytes (CBC) 0.4 K/uL (0.7-4.9); Hematocrit 37.2 % (39.6-49.0); Lymphocytes % 3.7 % (15.3-44.8); MCV 88.3 fL (80-100); MPV 7.5 fL (7.6-11.3); Platelets 232 thou/uL (152-406); RBC Red Blood Cell Count 4.22 M/uL (4.33-5.43)
[2023-07-04 07:25] LABS: Albumin 2.9 g/dL (3.4-5.0); Bilirubin Direct 0.4 mg/dL (0-0.2); Bilirubin Indirect, Calculated 0.5 mg/dL (0.2-0.8); Bilirubin Total 0.9 mg/dL (0.2-1.0); Magnesium 2.3 mg/dL (1.6-2.4); Phosphorus 2.7 mg/dL (2.5-4.9); Potassium 3.8 mEq/L (3.5-5.1); Protein, Total 6.8 g/dL (6.4-8.2)
--- NOTE | 2023-07-04 08:03 | P.DS ---
Admission Date: 07/02/23 Discharge Date: 07/04/23 Disposition: ROUTINE DISCHARGE Discharge Condition: GOOD Reason for Admission: Acute cholecystitis Brief History of Present Illness: Diagnosis Acute Cholecystitis Prolonged QT Hypokalemia Diabetes Mellitus-NIDDM Hospital Course: Bradley White is a pleasant 52-year-old male with a past medical history significant for diabetes mellitus and hypertension who was admitted to the [facility] on 07/02/2023 for acute cholecystitis. Bradley presented to the ED with complaints of epigastric pain. He did have several episodes of diarrhea and woke up through the night further progressed to nausea and vomiting which led to severe pain. Ultrasound abdomen shows small to moderate amount of gallbladder sludge, CT angio of chest shows mild gallbladder distention. Zosyn was started while in the ED, Dr. Roberts was consulted with plans to go to surgery. He has tolerated surgical procedure well and is recovering well. He is ambulating independently on room air and tolerating a p.o. diet. He is hemodynamically stable and ready for discharge. On 07/04/2023, Bradley was seen on morning rounds and deemed medically stable for discharge. Bradley was discharged with instructions to schedule follow-up appointments with PCP and Dr. Roberts. Bradley was provided prescriptions for tramadol and ciprofloxacin. The patient and family members were given the opportunity to ask questions and reported no further questions. Furthermore, all questions were answered to the best of my ability. A copy of this discharge summary will be sent to the above providers to facilitate continuity of care. Today, I personally spent 55 minutes with Bradley, of which greater than 50% of the time was spent in patient education, counseling, and coordination of care as described above. Vital Signs/Physical Exam: Temp Pulse Resp BP Pulse Ox 98.1 F 75 16 113/58 L 93 07/04/23 07:59 07/04/23 07:59 07/04/23 07:59 07/04/23 07:59 07/04/23 07:59 Laboratory Data at Discharge: WBC 12.00 thou/uL (4.3-10.9) H 07/04/23 05:57 Hgb 12.8 g/dL (13.6-17.9) L D 07/04/23 05:57 Hct 37.2 % (39.6-49.0) L 07/04/23 05:57 Plt Count 232 thou/uL (152-406) 07/04/23 05:57 PT 11.0 SECONDS (9.5-12.5) 07/02/23 10:00 INR 1.00 07/02/23 10:00 Sodium 135 mEq/L (136-145) L 07/04/23 05:57 Potassium 3.8 mEq/L (3.5-5.1) 07/04/23 05:57 BUN 11 mg/dL (7-18) 07/04/23 05:57 Creatinine 0.80 mg/dL (0.70-1.30) 07/04/23 05:57 Glucose 145 mg/dL (74-106) H 07/04/23 05:57 Phosphorus 2.7 mg/dL (2.5-4.9) 07/04/23 05:57 Magnesium 2.3 mg/dL (1.6-2.4) 07/04/23 05:57 Total Bilirubin 0.9 mg/dL (0.2-1.0) 07/04/23 05:57 AST 137 U/L (15-37) H 07/04/23 05:57 ALT 237 U/L (16-61) H 07/04/23 05:57 Alkaline Phosphatase 72 U/L (45-117) 07/04/23 05:57 Lipase 27 U/L (13-75) 07/02/23 10:00 Home Medications: Doxepin HCl [Sinequan*] 10 mg PO DAILY 07/03/23 Losartan Potassium 100 mg PO DAILY 07/03/23 Omeprazole 20 mg PO DAILY 07/03/23 Tamsulosin [Flomax*] 0.4 mg PO BEDTIME 07/03/23 Ciprofloxacin HCl [Cipro 500 MG Tablet] 500 mg PO BID 7 Days #14 tab 07/04/23 traMADol HCL [Ultram] 50 mg PO Q6H PRN 3 Days #15 tab 07/04/23 New Medications: Ciprofloxacin HCl [Cipro 500 MG Tablet] 500 mg PO BID 7 Days #14 tab traMADol HCL [Ultram] 50 mg PO Q6H PRN 3 Days #15 tab PRN Reason: Pain Scale 5-7 (Moderate) Physician Discharge Instructions: Physical Exam General: Alert, Oriented x3, Moderate distress HEENT: Atraumatic, Normocephalic, PERRLA Neck: Supple, 2+ carotid pulse no bruit, JVD not distended Respiratory: Clear to auscultation bilaterally, Normal air movement Cardiovascular: No edema, Normal pulses, Regular rate/rhythm, Normal S1 S2 Capillary refill: <2 Seconds Gastrointestinal: Normal bowel sounds, Soft and benign, Tenderness (epigastric tenderness) Musculoskeletal: No clubbing, No swelling, No contractures, No erythema Integumentary: No rashes, No breakdown, No significant lesion Neurological: Normal speech, Normal strength at 5/5 x4 extr, Normal tone Discharge Instructions: Remove outer dressing in a.m. and shower Dry gauze or Band-Aid to wound daily Incentive spirometry as instructed Resume home meds and diet No heavy lifting or strenuous exercise Follow-up my office next week, call for appointment Antibiotics and pain medicine per hospitalist service Diet: Low sodium Activity: No lifting more than 10 lbs Followup: Scooter Mon MD [Primary Care Provider] - Omar Roberts MD [ACTIVE - CAN ADMIT] - 07/13/23 Time spent managing pt's care (in minutes): 55
[2023-07-04 08:04] VITALS: BP 113/58; TEMP 98.1
--- NOTE | 2023-07-04 08:11 | PN ---
Date of Progress Note: 07/04/2023 Subjective: Patient is awake, alert, feels much better. Objective: Vital Signs: Stable, afebrile. Abdomen: Soft, nondistended, nontender. Positive bowel sounds. Dressing is clean, dry, intact. Laboratory Data: White count is down to 12,000. Assessment: Status post laparoscopic cholecystectomy for acute cholecystitis. Recommendations: The patient is cleared for discharge from surgery point of view. His LFTs were rev iewed. They are improving. The patient is to follow up with me in 1 week. Discharge instructions jose miguel chávez. KEHINDE/MODTai Voice ID: [id number] Report ID: [id number]
[2023-07-04] MEDS ORDERED: LOSARTAN POTASSIUM 50 MG TABLET PO SCH (09:00)
== END 2023-07-04 11:39 | disposition home or self-care (01) | DRG 419 ==
LOC: ER 09:39 → ERHOLD 13:07 → 2ND 07-03 11:17
PROVIDERS: ADMIT Hospitalist; ATTEND Hospitalist
PROC: 0FT44ZZ Resection of Gallbladder, Percutaneous Endoscopic Approach (ICD-10-PCS; principal; 2023-07-03 09:15)
DX: K81.0 Acute cholecystitis (principal); E87.6 Hypokalemia; E11.9 Type 2 diabetes mellitus without complications; I10 Essential (primary) hypertension
CPT/HCPCS: 36415; 71045; 71275; 74175; 76705; 80048; 80076; 80307; 82947; 83036; 83605; 83690; 83735; 83880; 84100; 84484; 85025; 85610; 87040; 88304; 94010; 96361; 96374; 96375; 99285; J1100; J1170; J2001; J2250; J2405; J2543; J2550; J2704; J2710; J2765; J3010; J3480; J7030; Q9967